=== PATIENT | female | born 1995 | race Asian ===

== ENCOUNTER 2018-10-14 01:58 | Emergency (ER) | payer MEDICAID ==
[~2018-10-14] VITALS: Ht 149.9 cm; Wt 54.5 kg
--- NOTE | 2018-10-14 02:08 | NUR ---
PT REFUSED TRIAGE TEMPERATURE.
[2018-10-14 03:11] LABS: BASOPHILS % (AUTO) 0.4 % (0-1); EOSINOPHILS % (AUTO) 0.1 % (0-6); HEMATOCRIT 40.7 % (35.0-45.0); HEMOGLOBIN 13.6 g/dl (12.0-16.0); LYMPHOCYTES # (AUTO) 2.2 X10'3 (1.1-4.8); LYMPHOCYTES % (AUTO) 25.4 % (21-51); MEAN CORPUSCULAR HEMOGLOBIN 30.2 PG (27.0-31.0); MEAN CORPUSCULAR HGB CONC 33.5 g/dL (33.0-36.5); MEAN CORPUSCULAR VOLUME 90.1 FL (78-98); MEAN PLATELET VOLUME 7.2 FL (7.4-10.4); MONOCYTES # (AUTO) 0.8 X10'3 (0-0.9); MONOCYTES % (AUTO) 9.2 % (2-12); NEUTROPHILS # (AUTO) 5.5 X10'3 (1.8-7.7); NEUTROPHILS % (AUTO) 64.9 % (42-75); PLATELET COUNT 320 X10'3 (140-440); RED BLOOD COUNT 4.51 X10'6 (4.20-5.60); RED CELL DISTRIBUTION WIDTH 12.6 % (11.5-14.5); WHITE BLOOD COUNT 8.5 X10'3 (4.5-11.0)
[2018-10-14] MEDS ORDERED: NO HOME MEDS (03:15)
[2018-10-14 03:20] LABS: URINE HCG NEGATIVE (NEG)
[2018-10-14 03:26] LABS: CLARITY,URINE CLEAR (Clear); COLOR,URINE YELLOW (Yellow); GLUCOSE, URINE NEGATIVE (Neg); KETONES,URINE NEGATIVE (Neg); LEUKOCYTE ESTERASE ,URINE NEGATIVE (Neg); NITRITES, URINE NEGATIVE (Neg); OCCULT BLOOD,URINE TRACE-INTACT (Neg); PROTEIN,URINE NEGATIVE (Neg); UROBILINOGEN,URINE 0.2 E.U/dL (0.2-1.0)
[2018-10-14 03:29] LABS: UA COLLECTION TYPE CLN CATCH MIDSTREAM
[2018-10-14 03:31] LABS: BACTERIA,URINE NONE SEEN /HPF (Neg); MUCUS STRANDS NONE SEEN /LPF (Neg); RBC,URINE NONE SEEN /HPF (0-2); SQUAMOUS EPITHELIAL CELL,UR NONE SEEN /LPF (FEW); URINE AMPHETAMINE SCREEN NEGATIVE (Neg); URINE BARBITUATE SCREEN NEGATIVE (Neg); URINE BENZODIAZEPINES SCREEN NEGATIVE (Neg); URINE CANNABINOID SCREEN NEGATIVE (Neg); URINE COCAINE SCREEN NEGATIVE (Neg); URINE METHADONE SCREEN NEGATIVE (Neg); URINE OPIATE SCREEN NEGATIVE (Neg); URINE PHENCYCLIDINE SCREEN NEGATIVE (Neg); WBC,URINE NONE SEEN /HPF (0-4)
[2018-10-14 03:32] LABS: ALANINE AMINOTRANSFERASE 28 U/L (12-78); ALBUMIN 4.4 G/DL (3.4-5.0); ALBUMIN/GLOBULIN RATIO 1.1 (1.1-1.5); ALKALINE PHOSPHATASE 44 IU/L (20-180); ANION GAP 11 (8-16); ASPARTATE AMINO TRANSFERASE 17 U/L (10-37); BILIRUBIN,TOTAL 0.5 MG/DL (0.1-1.0); BLOOD UREA NITROGEN 10 MG/DL (7-18); BUN/CREATININE RATIO 12.2 (6.6-38.0); CALCIUM 9.4 MG/DL (8.5-10.1); CHLORIDE 104 MMOL/L (99-107); CREATININE 0.82 MG/DL (0.40-0.90); ETHANOL < 0.010 GM/DL (0.0-0.010); GLUCOSE 129 MG/DL (70-104); POTASSIUM 3.5 MMOL/L (3.5-5.1); SODIUM 141 MMOL/L (135-145); TOTAL CARBON DIOXIDE 26.1 MMOL/L (24-32); TOTAL PROTEIN 8.3 G/DL (6.4-8.2); eGFR 89 ML/MIN
--- NOTE | 2018-10-14 03:33 | NUR ---
MOTHER NICKOLAS GRADY, , CALLING FOR UPDATE. THEY LIVE IN [place], [place], AND SHE IS GOING TO DRIVE HERE AND WILL BE HERE AROUND 8 PM. SHE ASKED IF PT CAN GO HOME WITH HER WHEN SHE ARRIVES AND I EXPLAINED THE PROCESS OF OUR MENTAL HEALTH HOLD AND THAT PT WILL NEED EVALUATION BY [facility]. MOTHER REPORTS NO HX OF MENTAL HEALTH AND NO MEDICAL PROBLEMS AND NO MEDICATIONS.
[2018-10-14] MEDS ORDERED: OLANZapine **IM** 10 mg inj. IM ONE (04:55)
[2018-10-14] MEDS ORDERED: ziprasidone IM 20mg inj **IM only IM ONE (04:55)
--- NOTE | 2018-10-14 05:00 | NUR ---
PT RESPONDING TO INTERNAL STIMULI. SHE REPORTS SEEING DEMONS. EFFORTS TO REDIRECT HAVE BEEN UNSUCCESSFUL SO FAR. PT SPEECH PRESSURED AND RAPID. SHE PRESENTS WITH HYPERRELIGIOUSITY WELL. EDMD NOTIFIED.
--- NOTE | 2018-10-14 05:10 | NUR ---
pT ACCEPTED SEROQUEL, PLACE IN HER MOUTH, BUT SPIT IT OUT WHEN PRESENTED WATER FOR SWALLOWING. PILL LANDED ON FLOOR. EDMD AWARE. NEW ORDER RECEIVED FOR IM.
--- NOTE | 2018-10-14 06:36 | NUR ---
IM GEODON 20 MG GIVEN AT 0540, PT HELD DOWN FOR ADMINISTRATION, BUT CALM IMMEDIATELY AFTER AND RN SHELLI AT BEDSIDE WITH PATIENT FOR 15 MIN AFTER ADMINSTRATION TALKING WITH HER. PT NOW SLEEPING PEACFULLY WITH BLANKET COVERING TO HER CHEST.
--- NOTE | 2018-10-14 07:33 | NUR ---
PATIENT REFUSED VITAL SIGNS TAKEN THIS MORNING,WE WILL RE ATTEMPT LATER.
--- NOTE | 2018-10-14 09:05 | NUR ---
patient asleep at this time,mother at this time who reports patient has no known psychiatric history.paged [facility] to ruthann.
--- NOTE | 2018-10-14 09:15 | NUR ---
assumed care of pt from Joelle JOHNSON, pt is sleeping quietly on gurney, resp even and unlabored, family at bedside.
--- NOTE | 2018-10-14 09:48 | NUR ---
pt has minor abrasion to rt elbow, family asking for bandaid and ointment, pt is easily arouseable, calm and cooperative, drinking water, joann well no n/v, put bandaid and triple antibiotic to abrasion,
--- NOTE | 2018-10-14 10:49 | NUR ---
pt is resting quietly
--- NOTE | 2018-10-14 11:04 | NUR ---
pt moved to overflow,
--- NOTE | 2018-10-14 18:30 | NUR ---
Assumed patient care. Patient is sitting on bed, she is visiting mother and grandmother. This patient is well oriented, warm/dry, she has good color. The patient states command hallucinations that tell her to "go to ." The voices have been present for some while now per the patient. The patient states that while in confucianism she can see a triangle of light. The patient is easily startled. 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 Her support system is good. Patients mother and grandmother have arrived from the [facility]. If released from her 5150 they will be willing to take patient home with them to seek care in the [facility].
--- NOTE | 2018-10-14 19:45 | NUR ---
Patients mother and grandmother are visiting at bedside. Patient is happy and smiling. Linear thought present. Patient is oriented to person, place, and time. Patient describes command voices but not right now. The voices tell her to "go to ." Patient is not bothered by the voices, she ignores them. This patient's father is an industrial gas service helper with a PHD. Years ago he began experiencing psych problems, per the patients mother probably bipolar. He returned to [facility] to live with his brother. He has since been institurionalized in a psychiatriac institution. Mother and grandmother plan to stay with this patient when released. The plan is to take her back to [place] where they live and seek psychiatric care there.
[2018-10-14] MEDS ORDERED: quetiapine 100mg tablet PO ONE (21:00)
[2018-10-14] MEDS ORDERED: ziprasidone 20mg capsule PO SCH (21:00)
[2018-10-14] MEDS ORDERED: ziprasidone 20mg capsule PO ONE (21:00)
[2018-10-14] MEDS ORDERED: LORazepam 1 MG tablet PO ONE (21:00)
--- NOTE | 2018-10-14 22:00 | NUR ---
Patient is sleeping quietly. She had ativan and geodon po.
--- NOTE | 2018-10-15 05:00 | NUR ---
Patient slept during night. She awoke for a very short time. She then returned to sleep.
--- NOTE | 2018-10-15 07:00 | NUR ---
Pt in bed, appears to be sleeping.
--- NOTE | 2018-10-15 08:18 | NUR ---
Pt awake, up to use the bathroom.
--- NOTE | 2018-10-15 08:24 | NUR ---
Pt is brushing her teeth before breakfast.
--- NOTE | 2018-10-15 08:28 | NUR ---
Pt reports sleeping well last night, denies depression, anxiety, SI/HI/AH/VH this morning. She is waiting for her mom to come in so she can be discharged.
--- NOTE | 2018-10-15 08:55 | NUR ---
Pt attempted to call her mom, left a message.
--- NOTE | 2018-10-15 10:25 | NUR ---
Pt's mom and grandmother here to pick her up. Plan is for pt to return home to [place] with her family.
[2018-10-15 10:28] VITALS: BP 105/79
[2018-10-15] MEDS ORDERED: LORazepam 1 MG tablet PO SCH (21:00)
[2018-10-15] MEDS ORDERED: ziprasidone 20mg capsule PO SCH (21:00)
== END 2018-10-15 10:30 | disposition home or self-care (01) ==
LOC: ER 01:58
DX: R44.3 Hallucinations, unspecified (principal)
CPT/HCPCS: 36415; 80053; 80305; 80320; 81001; 81025; 84443; 85025; 96372; 99285; J3486